=== PATIENT | male | born 2005 | race Two or more races ===

== ENCOUNTER 2024-09-18 07:57 | Emergency (ER) | payer OTHER ==
[2024-09-18] MEDS: Diphtheria,Pertussis(Acell),Tetanus Vaccine 0.5 ML Syringe IM ONE (08:17)
[2024-09-18] MEDS: Bacitracin Oint 1 GM U/D Packet TOP ONE (08:32)
[2024-09-18] MEDS: Bacitracin/Neomycin/Polymyxin B Oint 28.4 GM Tube TOP ONE (08:37)
== END 2024-09-18 08:35 | disposition home or self-care (01) ==
LOC: CC.ED 07:57
DX: S61.512A Laceration without foreign body of left wrist, initial encounter (principal); Z23 Encounter for immunization; W26.8XXA Contact with other sharp object(s), not elsewhere classified, initial encounter
CPT/HCPCS: 12001; 90471; 90715; 99282-25; 99283; J2003